=== PATIENT | female | born 1990 | race Caucasian/White ===

== ENCOUNTER 2018-12-24 21:01 | Emergency (ER) | payer SELFPAY ==
[2018-12-24] MEDS ORDERED: DEXAMETHASONE SOD PHOS INJ 10 MG/1 ML VIAL IM ONE (23:15)
--- NOTE | 2018-12-24 23:23 | ER Document Report ---
HPI - HPI Patient complains to provider of: sore throat and earache Time Seen by Provider: 12/24/18 22:15 Pain Level: 3 Context: 28F presents for sore throat and cough x 4 days. She c/o fever, BENNETT, earache, bodyaches, and flu-like symptoms. Sick contacts. Has tried Theraflu. Denies chills, nausea, vomiting, shortness of breath or chest pain, abdominal pain, diarrhea, urinary symptoms. She is a smoker - REPRODUCTIVE LMP: 12/06/18 Reproductive: DENIES: : Past Medical History - Social History Smoking Status: Current Every Day Smoker Family History: None Vertical Provider Document - CONSTITUTIONAL Notes: PHYSICAL EXAMINATION: Reviewed vital signs and charting by RN GENERAL: Alert, interacts well. No acute distress. HEAD: Normocephalic, atraumatic. EYES: Pupils equal, round. Extraocular movements intact. ENT: Oral mucosa moist, tongue midline. Mild erythema oropharynx, 1+ tonsillar hypertrophy with no exudate. Uvula midline NECK: Full range of motion. Supple. Trachea midline. Bilateral anterior c ervical lymphadenopathy LUNGS: inspiratory wheezing left lower lobe, rales, or rhonchi. No respiratory distress. HEART: Regular rate and rhythm. No murmur EXTREMITIES: Moves all 4 extremities spontaneously. No edema, No cyanosis. PSYCH: Normal affect, normal mood. SKIN: Warm, dry, normal turgor. No rashes or lesions noted. - INFECTION CONTROL TRAVEL OUTSIDE OF THE [place] IN LAST 30 DAYS: No Course - Re-evaluation Re-evalutation: 12/24/18 23:23 Rapid flu and strep ordered. 12/25/18 00:20 Rapid flu and strep both negative. Most likely represents a upper respiratory viral illness. Patient given 1 dose of dexamethasone 10 mg IM. I will give patient a prescription for Magic mouthwash. Patient is safe and stable to discharge home. - Vital Signs Vital signs: Temp Pulse Resp BP Pulse Ox 98.2 F 100 18 155/87 H 100 12/24/18 21:06 12/24/18 21:06 12/24/18 21:06 12/24/18 21:06 12/24/18 21:06 Discharge - Discharge Clinical Impression: Earache, Lymphadenopathy Pharyngitis Qualifiers: Pharyngitis/tonsillitis etiology: unspecified etiology Qualified Code(s): J02.9 - Acute pharyngitis, unspecified Condition: Good Disposition: HOME, SELF-CARE Additional Instructions: Your strep test is negative. Your symptoms are likely due to an viral infection and will resolve in the next 1-2 weeks. You have also been given a dose of steroids to help with your throat discomfort. Please continue to take ibuprofen 600 mg every 6 hours as needed for throat discomfort. You can also gargle with salt water. Continue to drink plenty of fluids. Follow-up with your primary care doctor in the next several days. Return if you become unable to swallow, have difficulty breathing, pass out, have persistent vomiting that prevents you from being able to tolerate fluids, or have any other symptoms that are concerning to you.
[2018-12-25 00:09] LABS: A TYPE INFLUENZA AG NEGATIVE (NEGATIVE)
[2018-12-25 00:10] LABS: B INFLUENZA AG NEGATIVE (NEGATIVE)
[2018-12-25 00:30] VITALS: BP 132/66
[2018-12-25] MEDS ORDERED: ALBUTEROL SULFATE HFA (90 MCG/PUFF) 8 GM MDI (1 MDI/ER DISP) IH ONE (00:35)
== END 2018-12-25 00:34 | disposition home or self-care (01) ==
LOC: ER 21:01
DX: J02.9 Acute pharyngitis, unspecified (principal); R51 Headache; R59.1 Generalized enlarged lymph nodes; R50.9 Fever, unspecified; M79.10 Myalgia, unspecified site; H92.09 Otalgia, unspecified ear
CPT/HCPCS: 99283; 96372; 87070; 87880; 87804; J1100; J3490